=== PATIENT | female | born 1955 | race African-American/Black ===

== ENCOUNTER 2019-10-23 11:27 | Emergency (ER) | payer MEDICARE, MEDICAID ==
[~2019-10-23] VITALS: Ht 175.3 cm; Wt 89.3 kg
[2019-10-23 11:34] VITALS: BP 127/75
[2019-10-23] MEDS ORDERED: COLC0.6T34 PO (12:10)
[2019-10-23] MEDS ORDERED: PRED50TA PO (12:10)
[2019-10-23] MEDS ORDERED: NAPR-514 PO (12:10)
[2019-10-23] MEDS ORDERED: COLCHICINE 0.6 MG TABLET PO ONE (12:15)
[2019-10-23] MEDS ORDERED: PRED20TA PO (12:16)
--- NOTE | 2019-10-23 12:17 | PHYS DOC ---
Past Medical History Past Medical History: High Cholesterol, Hypertension Additional Past Medical Histor: hypokalemia Past Surgical History: No Surgical History Smoking Status: Former Smoker Alcohol Use: None General Adult EDM: Chief Complaint: FOOT INJURY PAIN HPI: HPI: Patient is a 64 year old AA female, accompanied by family member, who presents to the emergency department with complaints of left great toe and left foot redness, swelling, and pain for the last 3 days. Patient denies any known injury. She denies any numbness, tingling, or weakness of the affected extremity. She states that she had a similar problem with this about a year ago but does not know what caused it. She states that she had been told is because of her high blood pressure by previous provider years ago. She currently rates her pain 8 out of 10 on pain scale, she denies any alleviating factors, the pain is worse with touch, and ambulation, it does not radiate. Review of Systems: Review of Systems: Constitutional: Denies fever or chills. [] Musculoskeletal: See HPI Integument: See HPI Neurologic: Denies focal weakness or sensory changes. [] Psychiatric: Denies depression or anxiety. [] Heart Score: Risk Factors: Risk Factors: DM, Current or recent (<one month) smoker, HTN, HLP, family his tory of CAD, obesity. Risk Scores: Score 0 - 3: 2.5% MACE over next 6 weeks - Discharge Home Score 4 - 6: 20.3% MACE over next 6 weeks - Admit for Clinical Observation Score 7 - 10: 72.7% MACE over next 6 weeks - Early Invasive Strategies Allergies: Allergies: Allergies Coded Allergies Type Severity Reaction Last Updated Verified No Known Drug Allergies 10/23/19 No Physical Exam: PE: Constitutional: Well developed, well nourished, no acute distress, non-toxic appearance. [] HENT: Normocephalic, atraumatic, bilateral external ears normal, nose normal. [] Eyes: PERRLA, EOMI, conjunctiva normal, no discharge. [] Neck: Normal range of motion, no stridor. [] Cardiovascular: Heart rate regular rhythm Lungs & Thorax: Respirations even and unlabored, no retractions, no respiratory distress Skin: Erythema, edema, and warmth noted to left great and second toes and proximal foot, consistent with gout Extremities: Left foot: No cyanosis, no obvious deformity, PMS intact, 1+ edema. [] Neurologic: Alert and oriented X 3, no focal deficits noted. [] Psychologic: Affect normal, judgement normal, mood normal. [] Current Patient Data: Vital Signs: Vital Signs Date Time Temp Pulse Resp B/P (MAP) Pulse Ox O2 Delivery O2 Flow Rate FiO2 10/23/19 11:34 97.9 68 17 127/75 (92) 96 Room Air 97.9 EKG: EKG: [] Radiology/Procedures: Radiology/Procedures: [] Course & Med Decision Making: Course & Med Decision Making Pertinent Labs and Imaging studies reviewed. (See chart for details) [] Dragon Disclaimer: Dragon Disclaimer: This electronic medical record was generated, in whole or in part, using a voice recognition dictation system. Departure Departure Impression: Primary Impression: Gout of left foot Qualified Codes: M10.9 - Gout, unspecified Additional Impression: Gout involving toe of left foot Qualified Codes: M10.9 - Gout, unspecified Disposition: 01 HOME, SELF-CARE Condition: STABLE Referrals: UNKNOWN PCP NAME (PCP) Patient Instructions: Diet - Purine Restricted, Gout, [id number] Additional Instructions: Fill the prescription(s) and use them as directed. Follow the diet instructions provided. Follow-up with your primary care doctor for further evaluation and treatment of this condition. Return to the ER if symptoms worsen or you develop a fever. Scripts Prednisone (PREDNISONE) 20 Mg Tablet 1 TAB PO UD for 12 Days, #15 TAB 2 tabs by mouth days 1,2,3 then 1.5 tabs by mouth days 4,5,6 then 1 tab by mouth days 7,8,9 then 0.5 tab by mouth day 10,11,12 Prov: TIMOTHY JENNINGS APRN 10/23/19 Colchicine (COLCRYS) 0.6 Mg Tablet 0.6 MG PO HS for 1 Day, #1 TAB take this medication this evening, you were given the first dose in the ER Prov: TIMOTHY JENNINGS APRN 10/23/19 Naproxen (NAPROXEN) 500 Mg Tablet 1 TAB PO BID PRN for PAIN for 10 Days, #20 TAB 0 Refills Prov: TIMOTHY JENNINGS APRN 10/23/19 Justicifation of Admission Dx: Justifications for Admission: Justification of Admission Dx: N/A TIMOTHY JENNINGS [employer] PROFESSOR Oct 23, 2019 12:16
== END 2019-10-23 12:34 | disposition home or self-care (01) ==
LOC: ER 11:27
DX: M10.9 Gout, unspecified (principal); E78.00 Pure hypercholesterolemia, unspecified; I10 Essential (primary) hypertension; Z87.891 Personal history of nicotine dependence
CPT/HCPCS: 99283

== ENCOUNTER 2020-06-14 11:41 | Emergency (ER) | payer MEDICARE, MEDICAID ==
[~2020-06-14] VITALS: Ht 175.3 cm; Wt 98.0 kg
[~2020-06-14 11:41] MED LIST: COLC0.6T34 PO; NAPR-514 PO; PRED20TA PO; PRED50TA PO
--- NOTE | 2020-06-14 13:45 | RAD ---
XR CHEST 1V History: Reason: CHEST PAIN / Spl. Instructions: / History: Comparison: None. Technique: Portable AP chest radiograph. Findings: The lungs are adequately and symmetrically inflated. No airspace consolidation, pleural effusion or p neumothorax. The cardiomediastinal silhouette and pulmonary vasculature are within normal limits. Sof t tissues and osseous structures are unremarkable. Impression: 1. No acute cardiopulmonary process. Electronically signed by: Alverto Pimentel MD (06/14/2020 1:42 PM) [facility]
[2020-06-14 13:56] LABS: BASO # 0.1 x10^3/uL (0.0-0.2); BASO % 2 % (0-3); EOS # 0.3 x10^3/uL (0.0-0.7); EOS % 4 % (0-3); LYMPH # 3.6 x10^3/uL (1.0-4.8); LYMPH % 50 % (24-48); MEAN CORPUSCULAR HEMOGLOBIN 28 pg (25-35); MEAN CORPUSCULAR HGB CONC 33 g/dL (31-37); MEAN CORPUSCULAR VOLUME 86 fL (79-100); MONO # 0.6 x10^3/uL (0.0-1.1); MONO % 8 % (0-9); NEUT # 2.7 x10^3/uL (1.8-7.7); NEUT % 37 % (31-73); PLATELET COUNT 287 x10^3/uL (140-400); RED BLOOD COUNT 5.01 x10^6/uL (3.50-5.40); RED CELL DISTRIBUTION WIDTH 14.5 % (11.5-14.5); WHITE BLOOD COUNT 7.3 x10^3/uL (4.0-11.0)
[2020-06-14 14:05] LABS: CALCIUM 8.9 mg/dL (8.5-10.1); CREATININE 1.4 mg/dL (0.6-1.0); GFR 45.5; POTASSIUM 4.1 mmol/L (3.5-5.1)
[2020-06-14 14:11] LABS: ALBUMIN 3.5 g/dL (3.4-5.0); ALBUMIN/GLOBULIN RATIO 0.9 (1.0-1.7); MAGNESIUM 1.9 mg/dL (1.8-2.4); TOTAL BILIRUBIN 0.4 mg/dL (0.2-1.0); TOTAL PROTEIN 7.4 g/dL (6.4-8.2)
--- NOTE | 2020-06-14 14:11 | EKG ---
[facility] [address] [place] [address] Test Date: 2020-06-14 Test Time: 13:38:20 Pat Name: LYNETTE LINDSAY Department: Room: Gender: F Preload Supervisor: : [id number] Requested By: ANGEL SÁNCHEZ Order Number: [id number] Reading MD: Measurements Intervals [place] Rate: 64 P: 60 WI: 140 QRS: 1 QRSD: 78 T: 29 QT: 416 QTc: 433 Interpretive Statements SINUS RHYTHM NORMAL ECG RI6.02 No previous ECG available for comparison
--- NOTE | 2020-06-14 14:24 | PHYS DOC ---
Past Medical History Past Medical History: High Cholesterol, Hypertension Additional Past Medical Histor: hypokalemia Past Surgical History: No Surgical History Smoking Status: Former Smoker Alcohol Use: None Adult General Chief Complaint Chief Complaint: DIZZY/LIGHT HEADED HPI HPI Patient is a 64 year old female with a past medical history of hypertension hyperlipidemia presents emergency department for new onset headache. Patient states that for the last 3 months she been having increased difficulty controlling her hypertension. Patient states that she was seen by her primary care physician 3 days ago for elevated blood pressure and was treated with atenolol to metoprolol. Patient is concerned because her blood pressure remains elevated. Denies any fevers, chills, nausea, vomiting, chest pain, dizziness or lightheadedness. No vision changes. States he has been compliant with all of her medications Review of Systems Review of Systems Constitutional: Denies fever or chills [] Eyes: Denies change in visual acuity, redness, or eye pain [] HENT: Denies nasal congestion or sore throat [] Respiratory: Denies cough or shortness of breath [] Cardiovascular: No additional information not addressed in HPI [] GI: Denies abdominal pain, nausea, vomiting, bloody stools or diarrhea [] : Denies dysuria or hematuria [] Musculoskeletal: Denies back pain or joint pain [] Integument: Denies rash or skin lesions [] Neurologic: Denies headache, focal weakness or sensory changes [] Endocrine: Denies polyuria or polydipsia [] All other systems were reviewed and found to be within normal limits, except as documented in this note. Allergies Allergies Allergies Coded Allergies Type Severity Reaction Last Updated Verified No Known Drug Allergies 10/23/19 No Physical Exam Physical Exam Constitutional: Well developed, well nourished, no acute distress, non-toxic appearance. [] HENT: Normocephalic, atraumatic, bilateral external ears normal, oropharynx moist, no oral exudates, nose normal. [] Eyes: PERRLA, EOMI, conjunctiva normal, no discharge. [] Neck: Normal range of motion, no tenderness, supple, no stridor. [] Cardiovascular:Heart rate regular rhythm, no murmur [] Lungs & Thorax: Bilateral breath sounds clear to auscultation [] Abdomen: Bowel sounds normal, soft, no tenderness, no masses, no pulsatile masses. [] Skin: Warm, dry, no erythema, no rash. [] Back: No tenderness, no CVA tenderness. [] Extremities: No tenderness, no cyanosis, no clubbing, ROM intact, no edema. [] Neurologic: Alert and oriented X 3, normal motor function, normal sensory function, no focal deficits noted. [] Psychologic: Affect normal, judgement normal, mood normal. [] Current Patient Data Vital Signs Vital Signs Date Time Temp Pulse Resp B/P (MAP) Pulse Ox O2 Delivery O2 Flow Rate FiO2 06/14/20 13:22 97.2 70 16 161/80 (107) 98 Room Air 97.2 Lab Values Laboratory Tests Test 06/14/20 13:44 White Blood Count 7.3 x10^3/uL (4.0-11.0) Red Blood Count 5.01 x10^6/uL (3.50-5.40) Hemoglobin 14.0 g/dL (12.0-15.5) Hematocrit 43.0 % (36.0-47.0) Mean Corpuscular Volume 86 fL (79-100) Mean Corpuscular Hemoglobin 28 pg (25-35) Mean Corpuscular Hemoglobin Concent 33 g/dL (31-37) Red Cell Distribution Width 14.5 % (11.5-14.5) Platelet Count 287 x10^3/uL (140-400) Neutrophils (%) (Auto) 37 % (31-73) Lymphocytes (%) (Auto) 50 % (24-48) H Monocytes (%) (Auto) 8 % (0-9) Eosinophils (%) (Auto) 4 % (0-3) H Basophils (%) (Auto) 2 % (0-3) Neutrophils # (Auto) 2.7 x10^3/uL (1.8-7.7) Lymphocytes # (Auto) 3.6 x10^3/uL (1.0-4.8) Monocytes # (Auto) 0.6 x10^3/uL (0.0-1.1) Eosinophils # (Auto) 0.3 x10^3/uL (0.0-0.7) Basophils # (Auto) 0.1 x10^3/uL (0.0-0.2) Sodium Level 140 mmol/L (136-145) Potassium Level 4.1 mmol/L (3.5-5.1) Chloride Level 105 mmol/L (98-107) Carbon Dioxide Level 26 mmol/L (21-32) Anion Gap 9 (6-14) Blood Urea Nitrogen 18 mg/dL (7-20) Creatinine 1.4 mg/dL (0.6-1.0) H Estimated GFR (Cockcroft-Gault) 45.5 BUN/Creatinine Ratio 13 (6-20) Glucose Level 101 mg/dL (70-99) H Calcium Level 8.9 mg/dL (8.5-10.1) Magnesium Level 1.9 mg/dL (1.8-2.4) Total Bilirubin 0.4 mg/dL (0.2-1.0) Aspartate Amino Transferase (AST) 22 U/L (15-37) Alanine Aminotransferase (ALT) 43 U/L (14-59) Alkaline Phosphatase 120 U/L (46-116) H Troponin I Quantitative < 0.017 ng/mL (0.000-0.055) Total Protein 7.4 g/dL (6.4-8.2) Albumin 3.5 g/dL (3.4-5.0) Albumin/Globulin Ratio 0.9 (1.0-1.7) L Lipase 74 U/L (73-393) Laboratory Tests 06/14/20 13:44 Laboratory Tests 06/14/20 13:44 EKG EKG [] Radiology/Procedures Radiology/Procedures [] Course & Med Decision Making Course & Med Decision Making Pertinent Labs and Imaging studies reviewed. (See chart for details) 64F presenting with acute hypertension without any significant evidence of encephalopathy at this time. Will obtain labs to make sure there is no evidence of acute underlying hypertensive emergency and reevaluate. Dragon Disclaimer Dragon Disclaimer This electronic medical record was generated, in whole or in part, using a voice recognition dictation system. Departure Departure Impression: Primary Impression: Hypertension Disposition: 01 DC HOME SELF CARE/HOMELESS Condition: GOOD Referrals: LUIS SHELTON MD (PCP) Patient Instructions: Hypertension Additional Instructions: EMERGENCY DEPARTMENT GENERAL DISCHARGE INSTRUCTIONS Thank you for coming to [facility] Emergency Department (ED) today and trusting us with you care. We trust that you had a positive experience in our Emergency Department. If you wish to speak to the department management, you may call the Director at [phone]. YOUR FOLLOW UP INSTRUCTIONS ARE FOLLOWS: 1. Do you have a private Doctor? If you do not have a private doctor, please ask for a resource list of physicians or clinics that may be able to assist you with follow up care. 2. The Emergency Physicain has interpreted your x-rays. The X-Ray specialist will also review them. If there is a change in the findings, you will be notified in 48 hours when at all possible. 3. A lab test or culture has been done, your results will be reviewed and you will be notified if you need a change in treatment. ADDITIONAL INSTRUCTIONS AND INFORMATION: 1. Your care today has been supervised by a physician who is specially trained in emergency care. Many problems require more than one evaluation for a complete diagnosis and treatment. We recommend that you schedule your follow up appointment as recommended to ensure complete treatment of you illness or injury. If you are unable to obtain follow up care and continue to have a problem, or if your condition worsens, we recommend that you return to the ED. 2. We are not able to safely determine your condition over the phone nor are we able to give sound medical advice over the phone. For these safety reasons, if you call for medical advice we will ask you to come to the ED for further evaluation. 3. If you have any questions regarding these discharge instructions please call the ED at [phone]. SAFETY INFORMATION: In the interest of safety, wellness, and injury prevention; we encourage you to wear your sealbelt, if you smoke; quite smoking, and we encourage family to use a protective helmet for bicycling and other sporting events that present an increased risk for head injury. IF YOUR SYMPTOMS WORSEN OR NEW SYMPTOMS DEVELOP, OR YOU HAVE CONCERNS ABOUT YOUR CONDITION; OR IF YOUR CONDITION WORSENS WHILE YOU ARE WAITING FOR YOUR FOLLOW UP APPOINTMENT; EITHER CONTACT YOUR PRIMARY CARE DOCTOR, THE PHYSICIAN WHOSE NAME AND NUMBER YOU WERE GIVEN, OR RETURN TO THE ED IMMEDIATELY. ANGEL SÁNCHEZ MD Jun 14, 2020 14:24
[2020-06-14 15:22] VITALS: BP 160/80
== END 2020-06-14 15:54 | disposition home or self-care (01) ==
LOC: ER 11:41
DX: I10 Essential (primary) hypertension (principal); R51.9 Headache, unspecified; E78.5 Hyperlipidemia, unspecified; E78.00 Pure hypercholesterolemia, unspecified; Z87.891 Personal history of nicotine dependence
CPT/HCPCS: 36415; 71045; 80053; 83690; 83735; 84484; 85025; 93005; 99285

== ENCOUNTER 2020-08-25 09:35 | Emergency (ER) | payer OTHER, MEDICAID ==
[~2020-08-25] VITALS: Ht 175.3 cm; Wt 95.9 kg
[2020-08-25 10:35] LABS: BASO % 1 % (0-3); EOS # 0.1 x10^3/uL (0.0-0.7); EOS % 3 % (0-3); HEMATOCRIT 45.2 % (36.0-47.0); HEMOGLOBIN 15.1 g/dL (12.0-15.5); LYMPH # 2.9 x10^3/uL (1.0-4.8); LYMPH % 56 % (24-48); MEAN CORPUSCULAR HEMOGLOBIN 28 pg (25-35); MEAN CORPUSCULAR HGB CONC 33 g/dL (31-37); MEAN CORPUSCULAR VOLUME 85 fL (79-100); MONO # 0.7 x10^3/uL (0.0-1.1); MONO % 14 % (0-9); NEUT # 1.4 x10^3/uL (1.8-7.7); NEUT % 27 % (31-73); PLATELET COUNT 384 x10^3/uL (140-400); RED BLOOD COUNT 5.33 x10^6/uL (3.50-5.40); RED CELL DISTRIBUTION WIDTH 13.9 % (11.5-14.5); WHITE BLOOD COUNT 5.2 x10^3/uL (4.0-11.0)
[2020-08-25 10:46] LABS: CALCIUM 9.1 mg/dL (8.5-10.1); CREATININE 2.1 mg/dL (0.6-1.0); GFR 28.5
[2020-08-25 10:52] LABS: ALBUMIN 3.6 g/dL (3.4-5.0); ALBUMIN/GLOBULIN RATIO 0.9 (1.0-1.7); TOTAL BILIRUBIN 0.3 mg/dL (0.2-1.0); TOTAL PROTEIN 7.6 g/dL (6.4-8.2)
[2020-08-25] MEDS ORDERED: IOHEXOL 240 MG/ML 50ML VIAL. PO ONE (11:00)
[2020-08-25] MEDS ORDERED: CONTRAST GIVEN. MC PRN (11:15)
[2020-08-25] MEDS ORDERED: IV NORMAL SALINE 1000ML BAG 1,000 ML IV ONE (11:30)
--- NOTE | 2020-08-25 11:57 | ED.ADGEN ---
Past Medical History Past Medical History: High Cholesterol, Hypertension Additional Past Medical Histor: LOW POTASSIUM Past Surgical History: No Surgical History Additional Past Surgical Histo: DENIES Smoking Status: Never Smoker Alcohol Use: None General Adult EDM: Chief Complaint: DIARRHEA HPI: HPI: Patient is a 64-year-old female who presents to the emergency room complaining of 3 weeks of diarrhea. Patient states that she has 2-4 episodes of diarrhea every day. She states that she saw her primary care doctor for 4 days ago and they placed her on Cipro and probiotics. She states that these did not help. She is having some lower abdominal discomfort. This comes and goes and does not appear to have any particular exacerbating factors. Patient denies any signi ficant nausea or vomiting. She has not had any fever. She denies any new medications. Review of Systems: Review of Systems: Complete ROS is negative unless otherwise documented in HPI Current Medications: Current Medications Medications (Trade) Dose Ordered Sig/Alex Start Time Stop Time Status Last Admin Dose Admin Info (CONTRAST GIVEN -- Rx MONITORING) 1 each PRN DAILY PRN 08/25/20 11:15 08/25/20 13:21 DC Iohexol (Omnipaque 240 Mg/ml) 50 ml 1X ONCE 08/25/20 11:00 08/25/20 11:02 DC 08/25/20 11:55 50 ML Sodium Chloride 1,000 ml @ 1,000 mls/hr 1X ONCE 08/25/20 11:30 08/25/20 12:29 DC 08/25/20 11:34 1,000 MLS/HR Allergies: Allergies: Allergies Coded Allergies Type Severity Reaction Last Updated Verified No Known Drug Allergies 08/25/20 No Physical Exam: PE: General: Awake, alert, NAD. Well Nourished, well hydrated. Cooperative HEENT: Atraumatic, EOMI, PERRL, airway patent, moist oral mucosa Neck: Supple, trachea midline Respiratory: CTA bilaterally, normal effort, no wheezing/crackles CV: RRR, no murmur, cap refill <2 GI: Soft, nondistended, minimal lower abdominal tenderness, no masses MSK: No obvious deformities Skin: Warm, dry, intact Neuro: A&O x3, speech NL, sensory and motor grossly intact, no focal deficits Psych: Normal affect, normal mood, not suicidal or homicidal Current Patient Data: Labs: Laboratory Tests Test 08/25/20 10:13 White Blood Count 5.2 x10^3/uL (4.0-11.0) Red Blood Count 5.33 x10^6/uL (3.50-5.40) Hemoglobin 15.1 g/dL (12.0-15.5) Hematocrit 45.2 % (36.0-47.0) Mean Corpuscular Volume 85 fL (79-100) Mean Corpuscular Hemoglobin 28 pg (25-35) Mean Corpuscular Hemoglobin Concent 33 g/dL (31-37) Red Cell Distribution Width 13.9 % (11.5-14.5) Platelet Count 384 x10^3/uL (140-400) Neutrophils (%) (Auto) 27 % (31-73) L Lymphocytes (%) (Auto) 56 % (24-48) H Monocytes (%) (Auto) 14 % (0-9) H Eosinophils (%) (Auto) 3 % (0-3) Basophils (%) (Auto) 1 % (0-3) Neutrophils # (Auto) 1.4 x10^3/uL (1.8-7.7) L Lymphocytes # (Auto) 2.9 x10^3/uL (1.0-4.8) Monocytes # (Auto) 0.7 x10^3/uL (0.0-1.1) Eosinophils # (Auto) 0.1 x10^3/uL (0.0-0.7) Basophils # (Auto) 0.0 x10^3/uL (0.0-0.2) Sodium Level 141 mmol/L (136-145) Potassium Level 4.0 mmol/L (3.5-5.1) Chloride Level 105 mmol/L (98-107) Carbon Dioxide Level 27 mmol/L (21-32) Anion Gap 9 (6-14) Blood Urea Nitrogen 24 mg/dL (7-20) H Creatinine 2.1 mg/dL (0.6-1.0) H Estimated GFR (Cockcroft-Gault) 28.5 BUN/Creatinine Ratio 11 (6-20) Glucose Level 83 mg/dL (70-99) Calcium Level 9.1 mg/dL (8.5-10.1) Total Bilirubin 0.3 mg/dL (0.2-1.0) Aspartate Amino Transferase (AST) 33 U/L (15-37) Alanine Aminotransferase (ALT) 72 U/L (14-59) H Alkaline Phosphatase 107 U/L (46-116) Total Protein 7.6 g/dL (6.4-8.2) Albumin 3.6 g/dL (3.4-5.0) Albumin/Globulin Ratio 0.9 (1.0-1.7) L Lipase 61 U/L (73-393) L Laboratory Tests 08/25/20 10:13 Laboratory Tests 08/25/20 10:13 Vital Signs: Vital Signs Date Time Temp Pulse Resp B/P (MAP) Pulse Ox O2 Delivery O2 Flow Rate FiO2 08/25/20 12:31 66 167/104 (125) 92 08/25/20 09:40 98.5 18 Room Air 98.5 EKG: EKG: [] Heart Score: C/O Chest Pain: N/A Risk Factors: Risk Factors: DM, Current or recent (<one month) smoker, HTN, HLP, family history of CAD, obesity. Risk Scores: Score 0 - 3: 2.5% MACE over next 6 weeks - Discharge Home Score 4 - 6: 20.3% MACE over next 6 weeks - Admit for Clinical Observation Score 7 - 10: 72.7% MACE over next 6 weeks - Early Invasive Strategies Radiology/Procedures: Radiology/Procedures: [] Course & Med Decision Making: Course & Med Decision Making Pertinent Labs and Imaging studies reviewed. (See chart for details) Patient is a 64 year-old female with a history of hypertension who presents to the Emergency Room complaining of abdominal pain and diarrhea for 3 weeks. On exam, patient has minimal tenderness. Due to patients history, age, and exam work up will need to be done to evaluate for intra-abdominal pathology. Work up ordered includes CBC, CMP, lipase, UA, CT abdomen and pelvis. Patient's pain does not epigastric and a cardiac evaluation is not be needed for atypical pain. Ddx includes colitis, gastroenteritis, medication side effect, diverticulitis, cholecystitis, cholelithiasis. Work up was reviewed and shows signs of gastritis or stranding around the stomach. No signs of infection at this time. I discussed the results with the patient. Patient also appears to have a mild acute kidney injury. I have offered the patient admission to be evaluated by GI specialist for her kidneys to be watched. At this time they would prefer to go home. We will give him the information to follow-up with Dr. Allen. Patient was given fluids here in the emergency room. I have discussed with her that it is very important she have her labs rechecked in a few days by her primary care physician to ensure that her acute kidney injury is not getting worse. Patient's test results and vitals while in the ED were fully reviewed and discussed with the patient. Patient is stable and at this time does not need admission to the hospital. We have discussed strict return precautions and the importance of following up with their Primary Care Physician. Patient stated understanding and was given an opportunity to ask any questions. Patient is in agreement with plan. Sheba Disclaimer: Sheba Disclaimer: This electronic medical record was generated, in whole or in part, using a voice recognition dictation system. Departure Departure Impression: Primary Impression: Diarrhea Additional Impression: Gastritis Disposition: HOME / SELF CARE / HOMELESS Condition: STABLE Referrals: LUIS SHELTON MD (PCP) GARRICK ALLEN MD Patient Instructions: Chronic Diarrhea Additional Instructions: Please follow up with your Primary Physician next week to have your lab work rechecked. Today you creatinine is 2.3 which is higher than it was in April. Scripts Diphenoxylate Hcl/Atropine (LOMOTIL TABLET) 1 Each Tablet 1 TAB PO TID PRN for DIARRHEA, #30 TAB Prov: ALEX ERNANDEZ MD 08/25/20 Problem Qualifiers ALEX ERNANDEZ MD August 25, 2020 11:57
--- NOTE | 2020-08-25 12:25 | RAD ---
Site ID: [id number] EXAMINATION: CT abdomen and pelvis without contrast Technique: Axial images with coronal and sagittal reconstructions are performed of abdomen and pelvis without intravenous contrast. Oral contrast is administered One or more of the following radiation dose reduction techniques was used: automated exposure control , adjustment of mA and/or KV according to patient size, and/or utilization of iterative reconstructio n technique. HISTORY: 64 years Female Reason: abdominal pain, elderly. Nausea. Diarrhea. COMPARISON: None. FINDINGS: Mild atelectasis is seen in the lung bases. There is slight thickening in the distal esophagus and th ere is prominent thickening in the gastric wall in the fundus and proximal body. Etiology is uncertai n. Correlation with endoscopy is a recommended. The liver, spleen, adrenals, and pancreas appear unremarkable for an unenhanced exam.. The gallbladde r appears contracted. No calcified stone is seen. The kidneys demonstrate no hydronephrosis. 2 mm nonobstructive stone in the mid left kidney is noted. The abdominal aorta is normal in caliber. No para-aortic significant enlarged lymph nodes are seen. The bowel loops are normal in caliber. The appendix is normal. No significant free fluid or fluid col lection in the abdomen or pelvis is seen. The urinary bladder appears unremarkable. The uterus and adnexa appear unremarkable. The osseous structures demonstrate prominent degenerative disc changes at L5/S1. IMPRESSION: 1. There is prominent thickening in the gastric wall proximally and in the distal esophagus. Consider possibility of gastritis. Underlying infiltrative mass is also a possibility. Evaluation with endosc opy is recommended. 2. The gallbladder is contracted. Further evaluation with gallbladder ultrasound could be considered. Electronically signed by: Scott Roman MD (08/25/2020 12:22 PM) [id number]
[2020-08-25 12:31] VITALS: BP 167/104
[2020-08-25] MEDS ORDERED: DIPH1TAB PO (12:58)
== END 2020-08-25 13:16 | disposition home or self-care (01) ==
LOC: ER 09:35
DX: K29.70 Gastritis, unspecified, without bleeding (principal); R19.7 Diarrhea, unspecified; I10 Essential (primary) hypertension; E78.00 Pure hypercholesterolemia, unspecified
CPT/HCPCS: 36415; 74176; 80053; 83690; 85025; 96360; 99285; J7030; Q9966

== ENCOUNTER 2021-05-02 09:20 | Emergency (ER) | payer OTHER, MEDICAID ==
[~2021-05-02] VITALS: Ht 175.3 cm; Wt 100.0 kg
[~2021-05-02 09:20] MED LIST changes: +DIPH1TAB PO
--- NOTE | 2021-05-02 11:01 | PHYS DOC ---
Past Medical History Past Medical History: High Cholesterol, Hypertension Additional Past Medical Histor: LOW POTASSIUM Past Surgical History: No Surgical History Additional Past Surgical Histo: DENIES Smoking Status: Never Smoker Alcohol Use: None General Adult EDM: Chief Complaint: SHORTNESS OF BREATH HPI: HPI: Patient is a 65 year old female who presents with 3-week history of fatigue, shortness of breath. Patient reports her symptoms have been mild to moderate and reports associated intermittent diarrhea. Patient denies fever, chills, night sweats, chest pain, palpitations, productive cough. She has been vaccinated against COVID-19, with her last dose being 2 months ago. She has not received a flu shot this season. Patient was treated for bronchitis last year with similar symptoms. She was given an albuterol inhaler at that time, which she reports greatly improved her symptoms. Review of Systems: Review of Systems: Constitutional: See HPI Eyes: Denies change in visual acuity, visual field deficits or discharge HENT: Denies ear pain, nasal congestion or sore throat Respiratory: See HPI Cardiovascular: See HPI GI: Denies abdominal pain, nausea, vomiting, bloody stools. +diarrhea : Denies dysuria or hematuria Musculoskeletal: Denies back pain or joint pain Integument: Denies rash or other skin lesion Neurologic: Denies headache, focal weakness or sensory changes Heart Score: C/O Chest Pain: No Allergies: Allergies: Allergies Coded Allergies Type Severity Reaction Last Updated Verified No Known Drug Allergies 08/25/20 No Physical Exam: PE: Constitutional: Well developed, well nourished, no acute distress, non-toxic appearance. HENT: Normocephalic, atraumatic, bilateral external ears without deformity or discharge, oropharynx moist, no oral exudates, nose without deformity or discharge, bilateral turbinates pale and swollen. Eyes: PERRLA, EOMI, conjunctiva normal, no discharge. Neck: Normal range of motion, no tenderness, supple, no stridor. Cardiovascular: Heart rate regular rhythm, no murmur. Lungs & Thorax: Diffuse expiratory wheezing. Abdomen: Bowel sounds normal, soft, no tenderness, no masses, no pulsatile masses. Skin: Warm, dry, no erythema, no rash. Neurologic: Alert and oriented x4, no focal deficits noted. Current Patient Data: Labs: Laboratory Tests Test 05/02/21 12:13 Influenza Type A Antigen Negative (NEGATIVE) Influenza Type B Antigen Negative (NEGATIVE) Vital Signs: Vital Signs Date Time Temp Pulse Resp B/P (MAP) Pulse Ox O2 Delivery O2 Flow Rate FiO2 05/02/21 10:35 97.7 62 18 137/70 (92) 98 Room Air 97.7 Radiology/Procedures: Radiology/Procedures: PROCEDURE: CHEST AP ONLY EXAM: XR CHEST 1V 05/02/2021 11:01 AM CLINICAL INDICATION: Shortness of breath and wheezing COMPARISON: None TECHNIQUE: AP semierect-upright view of the chest FINDINGS: The heart is normal in size. Lungs are adequately expanded. No consolidation. No pleural effusion or pneumothorax. The right costophrenic sulcus is incompletely visualized. There is no acute osseous abnormality. IMPRESSION: No acute cardiopulmonary abnormality. Electronically signed by: Jacklyn Angel MD (05/02/2021 11:30 AM) [id number] Course & Med Decision Making: Course & Med Decision Making Pertinent Labs and Imaging studies reviewed. (See chart for details) Patient is a 65-year-old female who presents with multiple complaints concerning for viral syndrome, including COVID-19. Work-up today will include chest x-ray, influenza AMB swab, COVID-19 swab. Flu swabs negative, chest x-ray negative for acute process. Patient is given quarantine instructions until COVID-19 swab test result becomes available. She is given supportive treatment measures as well as return precautions. Patient understands and is agreeable to discharge plan. Dragon Disclaimer: Dragon Disclaimer: This electronic medical record was generated, in whole or in part, using a voice recognition dictation system. Departure Departure Impression: Primary Impression: Viral syndrome Additional Impression: Person under investigation for COVID-19 Disposition: HOME / SELF CARE / HOMELESS Condition: STABLE Referrals: LUIS SHELTON MD (PCP) Patient Instructions: Incentive Spirometer, Viral Syndrome Additional Instructions: Follow the following supportive treatment measures: - Cool mist humidifier with plain water at bedside while you sleep - Mucinex (guaifenesin) per box instructions - Albuterol inhaler every 4 hours as needed for shortness of breath/wheezing - Alternate ibuprofen and acetaminophen every four hours for body aches/fever/headache - Use the incentive spirometer 5 times per day with 10 deep breaths each time If antibiotics were prescribed, take them as directed. You have been tested for or diagnosed with COVID-19 infection. It is an infection caused by a new type of coronavirus. COVID-19 will cause cold-like or mild flu symptoms in most. It can cause more severe symptoms like problems breathing in some. There is no treatment for COVID-19. The body will clear the infection over time. Self-care will help to ease discomfort. Steps to Take: - Rest as needed. - Choose healthy foods including fruits and vegetables. Drink water throughout the day. - Get plenty of sleep each night. - If you smoke, try to quit. It may ease breathing. - Avoid alcohol. - Keep Others Healthy - The virus can spread to others. Droplets are released every time you sneeze or cough. The droplets can get into the mouth, nose, or eyes of people near you and lead to infection. To lower the chances of spreading COVID-19 to others: Stay at home until your doctor has said it is safe to leave. If you tested positive this will mean staying isolated until both of the following are true: - At least 7 days have passed since the start of illness. - You are free of fever for at least 72 hours without the use of medicine. During this time: - Avoid public areas, events, or transportation. Do not return to work or school until your doctor has said it is safe to do so. - Call ahead if you need to go to a medical center. Let them know you may have COVID-19. It will help them guide you where to go. They may also ask you to wear a facemask when you come to the office. - If you call for emergency medical services, let them know you may have COVID- 19. While at home: - Try to avoid close contact with others. Stay about 6 feet away. - If possible, spend most of your time in a separate room from others. - Use a face mask if you will be in close contact with others such as sharing a room or vehicle. - Have someone wipe down common surfaces in the home. Use household physicist astrophysics every day on areas like doorknobs, counters, or sinks. - Cough or sneeze into a tissue. Throw the tissue away right after use. If a tissue is not available, cough or sneeze into your elbow. - Wash your hands often. Wash them after sneezing or coughing. Use soap and water and wash or at least 20 seconds. Alcohol based hand apparatus cleaner can be used if soap and water is not available. - Do not prepare food for others. Avoid sharing personal items like forks, spoons, or toothbrushes. - Avoid close contact with pets while you are sick. There is no evidence of the virus passing to pets. This is a safety step until more is known about this viru s. - Isolation can be frustrating. Social interaction can help. Keep in touch with friends and family through phone and tech options. You can still interact with others in your home, just keep a safe distance of about 6 feet. Follow-up: - Your doctors office will check in with you to see if there are any changes in your health. - You may be asked to keep track of symptoms to share with them. They will also let you know when you are clear to be in public again. Contact your doctor if your recovery is not going as you expect. Get emergency care if you have problems such as: - Trouble breathing with oxygen saturation <90% - Nonstop chest pain or pressure - Changes in awareness, confusion, or problems waking - Lips or face have bluish color - Worsening of symptoms If you think you have an emergency, call for emergency medical services right away. As taken from [facility] Albuterol Sulfate (Proair Hfa) 8.5 Gm Hfa.aer.ad 2 PUFF IH PRN Q4-6HRS PRN for wheezing, #1 INHALER 0 Refills Prov: IRMA JASSO 05/02/21 IRMA JASSO May 02, 2021 11:01
--- NOTE | 2021-05-02 11:32 | RAD ---
EXAM: XR CHEST 1V 05/02/2021 11:01 AM CLINICAL INDICATION: Shortness of breath and wheezing COMPARISON: None TECHNIQUE: AP semierect-upright view of the chest FINDINGS: The heart is normal in size. Lungs are adequately expanded. No consolidation. No pleural e ffusion or pneumothorax. The right costophrenic sulcus is incompletely visualized. There is no acute osseous abnormality. IMPRESSION: No acute cardiopulmonary abnormality. Electronically signed by: Jacklyn Angel MD (05/02/2021 11:30 AM) [id number]
[2021-05-02] MEDS: ALBUTEROL SULFATE 8GM INHALER. INH PRN (11:48)
[2021-05-02 13:54] LABS: INFLUENZA A PATIENT NEGATIVE (NEGATIVE); INFLUENZA B PATIENT NEGATIVE (NEGATIVE)
[2021-05-02] MEDS ORDERED: ALBU2.5V8 IH (14:01)
[2021-05-02 14:06] VITALS: BP 153/74
== END 2021-05-02 14:48 | disposition home or self-care (01) ==
LOC: ER 09:20
DX: B34.9 Viral infection, unspecified (principal); Z20.822 Contact with and (suspected) exposure to COVID-19; E78.00 Pure hypercholesterolemia, unspecified; I10 Essential (primary) hypertension
CPT/HCPCS: 71045; 87804; 99285; U0003; U0005